=== PATIENT | male | born 1950 | race Caucasian/White ===

== ENCOUNTER → 2022-01-28 08:48 | Outpatient (CLI) | payer MEDICARE, SELFPAY ==
--- NOTE | 2022-01-28 | DI.MRI.S_ITS ---
PROCEDURE: MR PELIS WO/W CON INDICATIONS: Elevated prostate specific antigen [PSA] TECHNIQUE: Coronal HASTE, axial T1 FSE with fat saturation, 3-plane nonbreath-hold T2 FSE. After the administration of contrast, dynamic axial, delayed axial and coronal VIBE or 2-D FLASH with fat saturation through the pelvis. Optional diffusion weighted imaging and ADC may be performed. COMPARISON: None. FINDINGS: Image quality: Diagnostic. Prostate: Gland size is 6.6 x 5.5 x 7.8 cm; ellipsoid gland volume is 147 mL. There is heterogeneous enlargement of the transition zone with numerous in capsulated nodules. Lesion size(s): Lesion 1: 2.4 x 2.0 x 1.9 cm. Lesion 2: 0.9 x 0.9 x 0.8 cm. Lesion location(s) (sector): Lesion 1: Right posterior lateral transition zone and right posterior lateral medial peripheral zone in the mid prostate to the apex. Lesion 2: Left lateral posterior peripheral zone at the level of the mid gland. Lesion description: Lesion 1: There is an oval moderately T2 hypointense lesion with indistinct margins. No definite extraprostatic extension. Lesion 2: There is an oval circumscribed moderately T2 hypointense lesion. No evidence of extraprostatic extension. T2 weighted imaging (T2WI) morphology score: Lesion 1: 5 Lesion 2: 4 Diffusion weighted imaging (DWI) morphology score: Lesion 1: 5 Lesion 2: 4 Dynamic contrast enhancement (DCE): Lesion 1: Present. Lesion 2: Present. Lesion PI-RADS score: Lesion 1: PI-RADS 5 Lesion 2: PI-RADS 4 Genitourinary system: There is mild bladder wall thickening and trabeculation consistent with sequelae of chronic bladder outlet obstruction. Distal ureters are non distended. Bowel and peritoneum: No pathologic free pelvic fluid. Inferior colon and small bowel loops are normal in caliber. Nodes and vessels: No pelvic or inguinal adenopathy by size criteria. Iliac vessels are normal in caliber. Soft tissues: No inguinal hernias. Bones: Marrow demonstrates normal overall signal. There is a small indistinct mildly T2 hyperintense and mildly enhancing lesion within the left sacral ala measuring up to approximately 0.8 cm. This is incompletely evaluated on the current study. IMPRESSION: 1. PI-RADS 5 lesion demonstrated within the right posterior transition zone and peripheral zone at very high suspicion for clinically significant prostate cancer. No definite evidence of extraprostatic extension. 2. Smaller PI-RADS 4 lesion within the left peripheral zone also at high suspicion for clinically significant prostate cancer. 3. No evidence of lymphadenopathy in the pelvis by size criteria. 4. Small indistinct mildly enhancing lesion in the left sacrum. The findings are nonspecific but are incompletely evaluated on the current study. Recommend correlation with bone scan. 5. Mild bladder wall thickening and trabeculation compatible with sequelae of chronic bladder outlet obstruction. Dictated by: Juan Mackey M.D. on 01/28/2022 at 14:56 Approved by: Juan Mackey M.D. on 01/28/2022 at 15:11
== END ==
PROVIDERS: Referring Provider Urology; Visit Provider Urology
DX: R97.20 Elevated prostate specific antigen [PSA] (principal); N42.9 Disorder of prostate, unspecified; M89.9 Disorder of bone, unspecified; N32.89 Other specified disorders of bladder
CPT/HCPCS: 72197; A9579

== ENCOUNTER → 2022-07-22 11:25 | Outpatient (CLI) | payer MEDICARE, SELFPAY ==
[2022-07-22 20:39] LABS: BUN Creatinine Ratio 17.3 (6-22); Blood Urea Nitrogen 18 mg/dL (9-20); Calcium 9.1 mg/dL (8.4-10.2); Carbon Dioxide 28 mmol/L (22-32); Chloride 103 mmol/L (98-107); Estimated Glomerular Filt Rate > 60 mL/min (>60); Glucose 92 mg/dL (80-110); HEMOLYSIS < 15 (0-50); Potassium 3.9 mmol/L (3.4-5.1); Sodium 140 mmol/L (137-145)
[2022-07-22 21:11] LABS: Prostate Specific Antigen 20.6 ng/mL (0.10-4.00)
== END ==
PROVIDERS: PCP Physician Assistant; Visit Provider Specialist
DX: Z01.812 Encounter for preprocedural laboratory examination (principal); R97.20 Elevated prostate specific antigen [PSA]
CPT/HCPCS: 80048; 84153

== ENCOUNTER → 2022-08-19 09:10 | Outpatient (CLI) | payer MEDICARE, SELFPAY ==
--- NOTE | 2022-08-19 09:11 | DI.CT.S_ITS ---
PROCEDURE: CT CHEST ABD PEL W CON INDICATIONS: Prostate CA TECHNIQUE: After the administration of oral and intravenous contrast, axial sections acquired from the supraclavicular neck to the pubic symphysis. Coronal and sagittal reformats were performed. For radiation dose reduction, the following was used: automated exposure control, adjustment of mA and/or kV according to patient size. COMPARISON: None. FINDINGS: Image quality: Excellent. CHEST: Lower Neck: No enlarged lymph nodes. Thyroid: Within normal limits. Axillae: No enlarged lymph nodes. Chest Wall: Unremarkable. Lungs and Airways: No consolidation or suspicious nodules. Bibasilar atelectasis. Mild emphysematous change. Airways are clear. Pleura: No pneumothorax or pleural effusions. Heart: Heart size is normal. Mild coronary artery calcifications. No pericardial effusion. Thoracic Vessels: The aorta and pulmonary arteries demonstrate normal size. Mediastinum and [place]: No enlarged lymph nodes. Esophagus: No wall thickening. No hiatal hernia. ABDOMEN: Liver: No focal lesion. Gallbladder: Unremarkable. Biliary ducts: Unremarkable. Pancreas: Unremarkable. Spleen: Unremarkable. Adrenal Glands: Unremarkable. Kidneys and Ureters: No hydronephrosis. Simple left renal cysts. Largest measuring 6.7 cm. Stomach and Bowel: Stomach, small bowel loops, and colon are unremarkable. Diverticulosis. Normal appendix. Peritoneum: No abnormal intraperitoneal fluid. No free air. Ventral Wall: Tiny umbilical hernia. Abdominal Nodes: No retroperitoneal or mesenteric adenopathy by size criteria. Vessels: Aorta and inferior vena cava are normal in size. Moderate plaque. PELVIS: Pelvic Organs: Prostatomegaly with median lobe hypertrophy. Bladder: No stones. Pelvic Nodes: No enlarged lymph nodes. Miscellaneous: No inguinal hernias are seen. Bones: Sclerotic focus at the right femoral neck. Sclerotic foci at the left femoral head and intertrochanteric region. Minimal scoliosis. IMPRESSION: 1. Small osseous sclerotic foci in the pelvis are indeterminate for metastatic disease. -Please see separately dictated nuclear medicine bone scan which is pending. 2. No adenopathy. Prostatomegaly. 3. Lungs are clear. Dictated by: Ramos Gonzalez M.D. on 08/19/2022 at 11:30 Approved by: Ramos Gonzalez M.D. on 08/19/2022 at 11:39
--- NOTE | 2022-08-19 09:11 | DI.NM.S_ITS ---
PROCEDURE: NM BONE SCAN WHOLE BODY RADIOPHARMACEUTICAL: 20.5 mCi Tc-99m MDP IV. INDICATIONS: Prostate CA TECHNIQUE: Delayed whole-body scintigrams were obtained approximately 3-4 hours after intravenous injection of radiotracer. Anterior and posterior views were acquired from vertex to feet. Additional left and right oblique views of the pelvis were obtained. COMPARISON: [facility], CT, CT CHEST ABD PEL W CON, 08/19/2022, 10:12. [facility], MR, MR PELVIS WO/W CON, 01/28/2022, 9:07. FINDINGS: No areas of relative intense radiotracer uptake identified that would be concerning for metastatic disease. No areas of photopenia identified in the osseous skeleton. Relatively subtle radiotracer uptake identified in the shoulders bilaterally, the sternoclavicular joints, the cervical spine, the knees, the ankles in the mid feet compatible with osteoarthritis. No abnormal soft tissue uptake. Activity in the kidneys is normal and symmetric. IMPRESSION: No scintigraphic evidence of osseous metastatic disease. Dictated by: Betty Ramos MD, PhD on 08/19/2022 at 14:51 Approved by: Betty Ramos MD, PhD on 08/19/2022 at 14:54
== END ==
PROVIDERS: PCP Physician Assistant; Referring Provider Specialist; Visit Provider Specialist
DX: C61 Malignant neoplasm of prostate (principal); I25.10 Atherosclerotic heart disease of native coronary artery without angina pectoris; N28.1 Cyst of kidney, acquired
CPT/HCPCS: 71260; 74177; 78306; A9503

== ENCOUNTER 2022-12-01 06:20 | Inpatient (IN) | payer MEDICARE, SELFPAY ==
[2022-11-27 10:20] VITALS: BMI 28.3
[2022-12-01] VITALS (12 sets, daily range): BP systolic 98–149; BP diastolic 63–88; PULSE 70–99; RESP 14–18; TEMP 35.8–36.7; O2SAT 92–99; BMI 28.3
--- NOTE | 2022-12-01 | PATH_ITS ---
[facility] Accession Number: [id number] No. of containers..03 Tissue . 01 Material submitted: . PART A: lymph node - RIGHT PELVIC LYMPH NODES PART B: lymph node - LEFT PELVIC LYMPH NODES PART C: prostate - PROSTATE . 01 Diagnosis: A. Right Pelvic Lymph Nodes, Dissection: Seven lymph nodes, negative for malignancy (0/7). . B. Left Pelvic Lymph Nodes, Dissection: Six lymph nodes, negative for malignancy (0/6). . C. Prostate, Radical Prostatectomy: Invasive prostatic adenocarcinoma, predominantly conventional/acinar type with focal ductal features, total Topaz score 9 (primary pattern 4, secondary pattern 5), involving 10% prostatic volume, with established extraprostatic extension, extensive perineural invasion, and focally positive margin at the right apex. See case summary and comment below. . CASE SUMMARY: Procedure: Radical Prostatectomy. Prostate Weight: 126 grams. TUMOR Histologic Type: Predominantly acinar adenocarcinoma with focal ductal features. Histologic Grade: Grade Group: 5 (4+5=9). Intraductal Carcinoma Of The Prostate: Present focally. Cribriform Gland: Present extensively. Tumor Quantitation: 10% of prostate volume is involved by tumor. Greatest Dimension Of Dominant Nodule: 26 x 22 mm (right mid and right posterior, slice 2). Extraprostatic Extension: Present, nonfocal (established). Urinary Bladder Neck Invasion: Not identified. Seminal Vesicle Invasion: Not identified. Lymphovascular Invasion: Not identified. Perineural Invasion: Extensive. Margins: Invasive carcinoma is present at margin focally. Margins Involved By Invasive Carcinoma: Focally at right apex margin (block C5, over a length of no more than 1 mm); see comment. Regional Lymph Nodes (see parts A and B): 13 lymph nodes negative for malignancy (0/13). Pathologic Stage: pT3a, pN0. . COMMENT: In block C5 (slice 1/apex), apparently cauterized tumor (magdalena 4) with overlying ink is seen within an area of extraprostatic extension. . In addition, in block C35 (slice 5), also in an area of extraprostatic extension, in the right mid prostate, a focus (less than 0.5 mm) is suspicious for involvement of margin, whereas tumor (magdalena 3) with overlying ink is seen. . Extraprostatic extension is seen in the right apex (slice 1), left posterior (slice 2), right mid/posterior (slice 4), and in the right mid (slice 5). . The invasive carcinoma involves predominantly the apex and the right mid and posterior quadrants, but is also seen involving the left posterior and focally the left anterior quadrant. JETHRO 12/11/2022 0338 Local . 01 Electronically signed: . Felecia Ureña MD, Pathologist NPI- [id number] . 01 Gross description: . A. Received in formalin labeled with the patient's name, and right pelvic nodes, and consists of a fragment of yellow lobulated adipose tissue measuring 6.1 x 2.8 x 1.0 cm. Palpation reveals seven page lymph node candidates ranging from 0.4 to 3.6 cm in greatest dimension. The lymph node candidates are submitted as follows: A1: Three intact lymph node candidates. A2: Three intact lymph node candidates. A3-A6: Largest serially sectioned lymph node candidate submitted sequentially. B. Received in formalin labeled with the patient's name, and left pelvic lymph nodes, and consists of a fragment of yellow lobulated adipose tissue measuring 6.2 x 1.7 x 1.0 cm. Palpation reveals five page lymph node candidates ranging from 0.4 to 4.1 cm in greatest dimension. The lymph nodes are submitted entirely as follows: B1: Two intact lymph node candidates. B2: Two intact lymph node candidates. B3-B7: Largest lymph node candidate serially sectioned and submitted sequentially. C. Received in formalin labeled with the patient's name, and prostate, and consists of a radical prostatectomy with right and left seminal vesicles and vasa deferentia weighing 126 grams and measuring 7.8 cm SI, 6.2 cm ML, and 5.7 cm AP. The right seminal vesicle and vas deferens measure 2.9 x 1.7 x 0.5 cm. The left seminal vesicle and vas deferens measure 3.7 x 1.8 x 0.9 cm. The base is significant for a large protruding nodule at the edge of the urethra measuring 3.0 x 2.4 x 1.5 cm. The right anterior is inked blue, the left anterior is inked green, the posterior is intact black, and the nodule at the base is inked orange. The prostate is serially sectioned from apex to base into seven slices to reveal an ill-defined pale page firm lesion at the right posterior aspect of slices 1-3 measuring 2.9 x 2.8 x 1.8 cm. The lesion grossly approaches the right anterior, posterior, and right apex margins with no gross invasion of the seminal vesicles or vasa deferentia. The remaining prostate is page, nodular, and unremarkable. Spinning Bath Person sections are submitted as follows: C1-C2: Left apex margin. C3-C6: Right apex margin. C7-C10: Left base margin with nodule. C11-C14: Right base margin. C15: Spinning Bath Person right base nodule. C16: Left seminal vesicle and vas deferens. C17: Right seminal vesicle and vas deferens. C18-C19: Slice 2; left; anterior to posterior. C20-C22: Slice 2; right; anterior to posterior. C23-C25: Slice 3; left half; anterior to posterior. C26-C28: Slice 3; right half; anterior to posterior. C29: Rep slice 4; right posterolateral. C30-C32: Slice 5; left half; anterior to posterior. C33-C35: Slice 5; right half; anterior to posterior. C36: Rep slice 6; right posterolateral section. Case discussed with Dr. Hunt and Dr. Das. ([id number]) /MRV 12/02/2022 [facility] Local . 01 Microscopic: . A cocktail of basal markers (high molecular weight cytokeratin and p63) is performed on blocks C4, C5 and C21 in order to evaluate the invasive carcinoma and for the presence of intraductal carcinoma of the prostate. Focal presence of basal markers supports focal intraductal carcinoma of the prostate. . CD34 and D2-40 immunostains are performed on blocks C4 and C5 in order to evaluate histologic features of possible lymphovascular space invasion. CD34 and D2-40 are negative around areas of interest, in support of no histologic evidence of lymphovascular space invasion. . * This test was developed and its performance characteristics [facility]. It has not been cleared or approved by the U.S. Food and Drug Administration. The FDA has determined that such clearance or approval is not necessary. This test is used for clinical purposes. It should not be regarded as investigational or for research. . 01 Pathologist provided ICD-10: C61 . 01 CPT . 656326, 682977, 162992, L34996, [id number], [id number] Specimen Comment: A courtesy copy of this report has been sent to [phone] Performed at: 01 [facility] [address] [facility], [place], [place] [id number] MD Juan Hunt MD Phone: [phone]
[2022-12-01 07:14] LABS: Hematocrit 42.8 % (41-53); Hemoglobin 14.2 g/dL (13.5-17.5)
[2022-12-01] MEDS: LACTATED RINGERS 1,000 ML 21 ML IV ×3 (07:14→10:39)
--- NOTE | 2022-12-01 07:43 | PM.PREOP ---
Pre-operative Note COVID-19 Criteria for continued procedure: Expected advancement of disease process, Deterioration of the patient's condition or overall health, Delay expected to result in less-positive ultimate med/surg outcome and Non-surgical alternatives not available or appropriate per current SOC Interval Note History & Physical reviewed/Exam performed by Physician: Yes Changes to H&P: No
[2022-12-01] MEDS: CEFAZOLIN 2 GM/100 ML PREMIX 100 ML IV (08:03)
[2022-12-01] MEDS: ACETAMINOPHEN IV 1,000 MG/100 ML VIAL 400 MG IV (08:15)
--- NOTE | 2022-12-01 08:51 | SUR.OPER ---
Supine on padded OR bed, head on pillow, arms secured on padded arm boards at <90 degrees abduction, legs uncrossed, safety belt at thigh. Bed jackknifed at pt iliac crest. Pillow under pt knees
[2022-12-01 09:02] LABS: COVID19 -Nasal RAPID Negative (Negative)
[2022-12-01] MEDS: TRANEXAMIC ACID 1,000 MG in SODIUM CHLORIDE 0.9% 100 ML 200 MG IV (09:08)
[2022-12-01] MEDS: BUPIVACAINE LIPOSOME 266 MG/20 ML VIAL INJ (10:59)
--- NOTE | 2022-12-01 11:19 | PM.OP.1 ---
Operative Date/Time/Diagnoses Date of procedure: 12/01/22 Time of procedure: 11:19 Pre-op diagnosis: Prostate cancer Post-op diagnosis: same Procedure & Clinicians Procedure: 1. Radical retropubic prostatectomy and bilateral pelvic lymphadenectomy. Same procedure as scheduled: Yes Indications: 1. Prostate cancer. Surgeon: Fern Aviles Movement Assembly Final Inspector: Donya Saeed Click Yes if Unassisted: No Anesthesia Type: General, Spinal (Duramorph) and Local (1.33% Exparel) Operative Notes Findings: 1. Normal midline lower abdominal tissue planes. 2. Markedly enlarged and globus prostate. 3. Visually and palpably unremarkable bilateral pelvic lymph nodes. 4. The periprostatic and seminal vesicle planes in the vicinity the prostate base and seminal vesicle fossa were on usually fibrotic. No visual or palpable obvious evidence of disease extension. Closure Type: primary Specimen(s): other (1. Prostate with attached seminal vesicles. 2. Right and left pelvic lymph nodes submitted separately. ) Applied: catheter (Eighteen Mongolian silicone [address] Yanez catheter.) Estimated Blood Loss (mL): 400 Blood products transfused: none Procedure in detail: Patient was administered Duramorph spinal anesthetic and then repositioned supine and provided general anesthesia. The abdomen, genitalia, and groin were then prepped and draped in sterile fashion. A 22 Mongolian Yanez catheter was inserted in the lower urinary tract in the balloon was inflated 20 cc. Catheter was placed to gravity drainage. A midline incision was made above the pubic symphysis through the layers of the midline lower abdominal wall using sharp, cautery, and blunt technique. The extraperitoneal, pelvic retroperitoneum was then entered. The anterior lateral sidewalls were then exposed using blunt technique. Bilateral pelvic lymph node dissection was performed using same steps and maneuvers as follows: The adventitia overlying the external iliac vein was divided along its length. The tash packet along the pelvic sidewall was then carefully dissected using blunt technique and and cautery technique for lymphostasis and hemostasis. In both cases the obturator nerve and vessels were observed and preserved. At the proximal extent of the dissection the tash packet was excised using cautery and sharp technique. The same maneuvers and technique reduce the distal extent. In both cases the specimens were handed off the field, labeled as to the site of their procurement and sent to pathology for routine gross and microscopic examination. Next the endopelvic fascia was incised on either side of the prostate careful blunt dissection was used to mobilize the levator musculature attachments. The prostatic fascia was then incised at the lateral aspect on the right side and carefully mobilized posteriorly except at the more apical extent which was not possible due to the globus nature of the prostate and rather high pubic arch. The same difficulties were encountered to divide and mobilize the prostatic fascia on the left. Next the puboprostatic ligaments were isolated and divided on each side using the LigaSure device. An O Monocryl was then placed at the apex of the pubic arch an overhand suture placements were conducted as needed while alternate with meticulous dissection and division of the dorsal venous complex with the thermal ligating device. Hemostasis was excellent. The urethra was I identified and isolated by gently elevating off the rectal wall. It was then divided just distal to the prostatic apex. The Yanez catheter was then mobilized so that it could be utilized to manipulate the prostate through dissection with anterior and caudal elevation. The rectal urethralis musculature was isolated and divided freeing the apex. Next, posterior lateral vascular pedicles were painstakingly isolated and divided with application of medium heme lock clips on the patient's side. Prostate was elevated reflected anteriorly as caudally to the level of the seminal vesicles. Did not base fascia was elevated and divided transversely, with the fibrotic findings as described above. Ampulla of the vas were isolated clipped proximally distally and divided. Accessed to the seminal vesicles was limited from the posterior approach. Therefore, the anterior bladder neck-prostate base junction was identified and careful blunt and cautery dissection was then used to open the bladder neck and extended dissection using the same techniques laterally on both sides. A large median lobe was encountered and engaged with an Allis clamp. The mucosa was then carefully identified, elevated and divided along the base of the intra prostatic median lobe. The trigone and ureteral orifices were identified in both cases and were avoided though they were positioned very close to the plane of elevation dissection of the median lobe. Posterior bladder neck was then divided using combination of sharp cautery and blunt technique. Now the seminal vesicles could be readily seen and were carefully divided from within the fossa using medium heme lock clips and sharp division. The prostate and attached seminal vesicles were then handed off the field in submitted to pathology for routine gross and microscopic examination. The bladder neck mucosa was then effaced using a Lembert technique with 4-0 Monocryl. A fishmouth repair of the bladder neck was performed using 2-0 Monocryl suture. Next, the Shivam sound was passed through the urethral meatus and the tip was positioned at the transected urethra just above the level of the pelvic floor. The flanges were engaged exposing the urethral margins. 2-0 Monocryl suture were then placed through the urethra at the 2, 4, 6, 8, and 10 positions the same sutures were then brought through their corresponding positions at the neobladder neck under direct visualization. An 18 Mongolian silicone Yanez catheter was then passed lower urinary track under direct visualization and the tip was advanced into the bladder lumen. The balloon was then inflated to 15 cc. Gentle traction was then applied to the catheter and the sutures were tied down sequentially under direct visualization. The Yanez catheter was then irrigated was clear and without clot immediately. It was then placed to gravity drainage. A 15 Mongolian fenestrated Kayden drain was then positioned in the space of Retzius and brought out through a separate stab incision to the right of midline incision. It was secured to the skin using 2-0 silk and Julien sandal technique in usual fashion. The skin and midline abdominal fascia were then infiltrated with diluted Exparel anesthetic. The fascia was then closed using running 0 PDS, starting at each the superior, and the inferior apex and then in running fashion meeting near the midline or the incision and tying 1 another together at that point. Valeriy's fascia was then reapproximated using 3-0 Vicryl. The skin was reapproximated using a running subcuticular technique of 4-0 Monocryl. The skin surface of the prepped area was then cleaned and dried. Telfa gauze were then trimmed and tailored appropriately from the drain site and the incision line. Both were then dressed with a transparent Op site. The patient was then awakened, transferred to [facility], and then transferred to recovery in stable condition. Complications: none Post-operative Condition: stable Disposition: PACU Plan for aftercare: Admit to acute care.
--- NOTE | 2022-12-01 12:37 | SUR.PHASEI ---
1235: Pt A&Ox4, denies any pain, VSS, spinal progressing to perineum. Dressing scant amt of drainage, intact. MASHA to bulb suction approx 10 mL collected. Urine clear lightly pink. Report given to receiving RN with time allowed for questions. PT transferred to room 206 with all personal belongings. Called updated daughter.
--- NOTE | 2022-12-01 13:00 | P.HP_ITS ---
History of Present Illness History of Present Illness Date Patient Seen: 12/01/22 Time Patient Seen: 13:00 Chief complaint: Radical Prostatectomy 12/01 Narrative: HPI Chief Complaint Chief Complaint: Prostate cancer HPI Details: Demario is a 71-year-old gentleman returning today for review PYLARIFY PET-CT scan 10/14/2022.? He denies interval new complaints or concerns.? The patient has a history of elevated PSA for which he underwent a negative TRUS/Bx on 09/24/2021 for PSA of 19.1. Pelvic MRI with contrast 01/28/2022 calculated a prostate volume of 147 cc.? A PI-RADS 5 lesion measuring 2.4 x 2.0 x 1.9 cm was identified at the right posterior lateral prostate in the mid to apical gland.? Additionally, there was a PI-RADS 4 lesion identified measuring 0.9 x 0.9 x 0.8 cm located at the left lateral posterior periphery extending in the mid to apical gland. He then underwent MRI fusion prostate biopsy 05/23/2022.? One of 2 cores were positive from the left midgland.? Group 1 adenocarcinoma was identified but also a finding of intraductal carcinoma was reported. 08/19/2022 whole-body bone scan showed no convincing evidence of osseous metastasis.? CT scan of chest, abdomen, and pelvis performed the same day identified several sclerotic foci within the pelvis, right femoral neck, and left femoral head and inter trochanteric region. PyL PET-CT 10/14/2022 identifies an area of increased metabolic activity within the right mid to inferior prostate gland likely representing known history of p rostate cancer.? No additional hyperintense mass or lymphadenopathy identified.? Incidental findings of a tiny left, nonobstructing right renal calculus and a 1.5 cm mucous retention cyst in the right maxillary sinus medially was identified. Discussed summary of above, interpretation of PET CT scan and options including repeat MRI fusion biopsy, proceed to leuprolide potentiated radiation therapy, and radical prostatectomy.? Explained rationale for the latter given enormous prostate volume and logistical challenges for radiation therapy due to his residence on [place].? He indicates a desire to proceed with definitive radical prostatectomy.? Discussed both open and robotic assisted approaches.? Explain the common side effects, potential complications, perioperative limitations/restrictions, and reasonable expectations of outcomes and recovery following radical prostatectomy.? He had only an additional few clarifying questions and concerns mainly related to postoperative activity restrictions, which were addressed and answered to his satisfaction at the encounter today.? He wishes to proceed as discussed. FOR[facility]LY [facility], [facility] Medical History? BPH w urinary obs/LUTS High blood pressure Prostate cancer Surgical History? H/O vasectomy Family History? Sister CancerFather Hypertension Hearing impairment Social History? marital status:? number of children:? 4 ROS Const All systems reviewed & are unremarkable except as noted in HPI and below Exam Exam Narrative Exam Narrative: He is a well-developed, well nourished male looking younger than his stated age and in no distress.? Head/neck-sclera clear and pupils are round and equal.? No visible evidence of adenopathy or JVD.? Chest-equal and unlabored expansion bilaterally.? Heart-normal sinus rhythm. Assessment & Plan (1) Prostate cancer: ?Status:?Acute ?Code(s): C61 - Malignant neoplasm of prostate Plan 1. Schedule radical retropubic prostatectomy.? 2. Schedule [facility] physical therapy referral for preoperative pelvic floor and core strength assessment and instructions. Reviewed findings, discussed impression, discussed options, and obtained detailed informed consent utilizing Medical illustrations and anatomic models. Review of clinical chart note history, patient data, imaging library, PSA jonathan ry, and pathology report history for encounter-15 minutes Woss-[id number] encounter-35 minutes Encounter documentation, coordination of surgical scheduling, and billing-10 minutes [facility] Medical History BPH w urinary obs/LUTS High blood pressure Prostate cancer Surgical History H/O vasectomy Family History Sister Cancer Father Hypertension Hearing impairment Social History marital status: number of children: 4 household members: spouse Smoking Status: Never smoker alcohol intake: current Meds Home Medications and Allergies Home Medications Medication Instructions Recorded Confirmed Type losartan 100 1 tab PO DAILY 07/16/22 01/14/23 History mg-hydrochlorothiazide 25 mg tablet multivitamin 1 tab PO DAILY 07/16/22 01/14/23 History pravastatin 40 mg tablet 40 mg PO DAILY 07/16/22 01/14/23 History vitamins A,C,[id number]-[id number] 4,296 1 cap PO BID 07/16/22 01/14/23 History mcg-226 mg-90 mg capsule (ICaps AREDS) Allergies Allergy/AdvReac Type Severity Reaction Status Date / Time meloxicam AdvReac Mild Swelling Verified 01/14/23 15:08 Exam Vital Signs (past 8 hours): Oxygen Delivery Method Room Air Oxygen Flow Rate 0 Narrative Exam Narrative: Well-developed well-nourished elderly gentleman in no acute distress. Head/neck-sclera clear pupils equal and round bilaterally. No visible evidence of JVD or adenopathy. Chest-equal and unlabored expansion bilaterally. Heart-normal sinus rhythm. Objective Labs 12/01/22 07:03 Assessment & Plan Assessment & Plan narrative: Assessment: 1. Adenocarcinoma the prostate. Plan: 1. Proceed with radical retropubic prostatectomy and bilateral pelvic lymphadenectomy as scheduled.
[2022-12-01] MEDS: LACTATED RINGERS 1,000 ML 125 ML IV ×2 (13:53→20:10)
[2022-12-01] MEDS: ACETAMINOPHEN 325 MG TABLET 650 MG PO (23:24)
[2022-12-01] MEDS: OXYCODONE IR 5 MG TABLET PO (23:26)
[2022-12-02] VITALS: BP 119/78; PULSE 98; RESP 19; TEMP 36.5; O2SAT 94
[2022-12-02] MEDS: OXYCODONE IR 5 MG TABLET PO ×4 (03:36→23:50)
[2022-12-02 03:46] VITALS: BP 101/59; PULSE 82; RESP 15; TEMP 36.5; O2SAT 94
[2022-12-02] MEDS: LACTATED RINGERS 1,000 ML 125 ML IV (04:17)
--- NOTE | 2022-12-02 07:37 | PM.PN.1 ---
Subjective Subjective Date Patient Seen: 12/02/22 Time Patient Seen: 07:10 Interval history: Demario is a 71-year-old male admitted 12/01/2022, for presumed localized carcinoma the prostate. He underwent radical retropubic prostatectomy on the morning of 12/01/2022 under Duramorph spinal and general anesthesia. Exam Vital Signs (past 8 hours): - 12/02/22 00:00 12/02/22 03:46 Temperature 97.7 F 97.7 F Pulse Rate 98 H 82 Respiratory Rate 19 15 Blood Pressure 119/78 101/59 L Pulse Oximetry 94 94 Oxygen Flow Rate 0 0 Oxygen Delivery Method Room Air Oxygen Flow Rate 0 Narrative Exam Narrative: Patient is sitting upright in bed and in no distress. Chest-equal and unlabored expansion bilaterally. Heart-normal sinus rhythm. MASHA drain-small to moderate bloody output. Approximately 10 cc in bulb. Suction reset. Yanez-light pink to rodrigo output without clot. Objective Labs 12/01/22 07:03 Labs: Laboratory Results - last 24 hr 12/01/22 12/01/22 07:23 08:33 SARS-CoV-2 (PCR) Negative Blood Type A Positive Antibody Screen Negative PFSH Medical History BPH w urinary obs/LUTS High blood pressure Prostate cancer Surgical History H/O vasectomy Family History Sister Cancer Father Hypertension Hearing impairment Social History marital status: number of children: 4 household members: spouse Smoking Status: Never smoker alcohol intake: current Assessment & Plan Assessment & Plan narrative: Assessment: 1. Stable postoperative day 1 status post radical retropubic prostatectomy and bilateral pelvic lymphadenectomy. 2. Pathology pending. Plan: 1. Increase diet and activity today. 2. Follow-up on pathology report when final as outpatient. Time Spent With Patient Critical Care time: I spent a total of [] minutes of critical care time on this patient's care today; this time is exclusive of procedural time.
[2022-12-02] MEDS: ACETAMINOPHEN 325 MG TABLET 650 MG PO ×3 (07:59→23:51)
[2022-12-02 08:00] VITALS: BP 116/64; PULSE 67; RESP 17; TEMP 36.2; O2SAT 96
[2022-12-02] MEDS: hydroCHLOROthiazide 25 MG TABLET PO (09:07)
[2022-12-02] MEDS: BISACODYL 10 MG SUPP PR (09:09)
[2022-12-02] MEDS: ENOXAPARIN 40 MG/0.4 ML SYRINGE SUBCUT (09:09)
[2022-12-02] MEDS: PRAVASTATIN 20 MG TABLET 40 MG PO (09:11)
[2022-12-02 11:32] VITALS: BP 114/72; PULSE 63; RESP 17; TEMP 36.3; O2SAT 95
--- NOTE | 2022-12-02 14:21 | CM.DANOTE ---
Initial DCP Assessment Note Pt is a 71 yo male, resident of [place] now POD#[address] Aviles PCP: Hilary Sellers Payer: Geovanny MUÑOZ Reviewed chart, pt discussed in multidisciplinary rounds this morning. Patient indp and active at baseline, no barriers identified by team to discharge home w/supportive spouse when medically cleared to do so No barriers identified at this time to patient's safe discharge home w/family to assist; close outpatient f/u recommended. CURTIS Mccarthy Discharge Planning/Care Management CM Discharge Assessment Start: 12/02/22 14:14 Freq: Status: Active Protocol: Document 12/02/22 14:14 YOBANY (Rec: 12/02/22 14:21 YOBANY [id number]) Discharge Planning Assessment Assigned Manager Regulatory CURTIS Gibbs DPOA/Assigned Designee Name Elyse Sudheer Contact Information [phone] or [phone] Advance Directives? No History Provided By Patient,Medical Record Prior Living Arrangements House Household Members spouse Independent with ADL's Yes Is patient alert and oriented? Yes Barriers to Discharge No Comment Home w/spouse Discharge Plan Home Transportation Arrangement Spouse Referrals Initiated None needed
[2022-12-02 16:00] VITALS: BP 124/72; PULSE 68; RESP 17; TEMP 37; O2SAT 96
[2022-12-02 20:00] VITALS: BP 131/81; PULSE 81; RESP 19; TEMP 36.3; O2SAT 95
[2022-12-03] VITALS: BP 114/70; PULSE 74; RESP 15; TEMP 36.6; O2SAT 95
[2022-12-03 04:00] VITALS: BP 131/84; PULSE 75; RESP 17; TEMP 36.6; O2SAT 92
[2022-12-03] MEDS: OXYCODONE IR 5 MG TABLET PO ×2 (05:52→12:16)
[2022-12-03] MEDS: ACETAMINOPHEN 325 MG TABLET 650 MG PO (05:52)
--- NOTE | 2022-12-03 07:40 | PM.DS.1 ---
History of Present Illness History of Present Illness Date Patient Seen: 12/03/22 Time Patient Seen: 07:15 Chief complaint: Radical Prostatectomy 12/01 Narrative: The patient was admitted on 12/01/2022 and underwent uncomplicated radical retropubic prostatectomy and bilateral pelvic lymphadenectomy under general and Duramorph spinal anesthesia for presumed localized carcinoma the prostate. Preoperative metastatic survey revealed no evidence of local, regional, extension or distant metastasis. Discharge Providers Provider Date of admission: 12/01/22 06:20 Discharge Date: 12/03/22 Primary care physician: SAM Iqbal Discharge provider: Fern Aviles MD Summary Hospital Course Discharge Diagnosis: 1. Prostate cancer Hospital Course: The patient was admitted on 12/01/2022 and underwent uncomplicated radical retropubic prostatectomy and bilateral pelvic lymphadenectomy under general and Duramorph spinal anesthesia. The patient's postop course was essentially unremarkable in that he tolerated a general diet the evening immediately postoperative, was able to ambulate and transfer without assistance morning of the 1st postoperative day and had return of bowel function the afternoon of the 1st postoperative day. The morning of 12/03/2022 the patient was stable for discharge. Pathology was pending at discharge. Exam Vital Signs (past 8 hours): - 12/03/22 00:00 12/03/22 04:00 Temperature 97.8 F 97.8 F Pulse Rate 74 75 Respiratory Rate 15 17 Blood Pressure 114/70 131/84 Pulse Oximetry 95 92 Oxygen Flow Rate 0 0 Oxygen Delivery Method Room Air Oxygen Flow Rate 0 Narrative Exam Narrative: His lying comfortably in bed and in no distress, awake and alert. Chest-equal and unlabored expansion bilaterally. Sinus rhythm. Abdomen-dressings and MASHA drain intact. Drain has proximally 20 cc of serosanguineous output. The drain is stripped without return of significant clot or additional fluid. Genitalia-intact to a Yanez catheter draining light rodrigo/pink outflow. No significant clots. Extremity-no edema pallor or tenderness. Objective Labs 12/01/22 07:03 [facility] Medical History BPH w urinary obs/LUTS High blood pressure Prostate cancer Surgical History H/O vasectomy Family History Sister Cancer Father Hypertension Hearing impairment Social History marital status: number of children: 4 household members: spouse Smoking Status: Never smoker alcohol intake: current Discharge Assessment & Plan Assessment and Plan Assessment: 1. Stable postop day 2 status post radical retropubic prostatectomy. 2. Pathology pending. 3. Indwelling Yanez catheter. Plan of Treatment: 1. Discharge home today. 2. Pathology will be discussed in outpatient setting when final. 3. Routine catheter care use instruction before discharge. Outpatient supervised voiding trial be arranged in the Urology Clinic. 4. Routine post prostatectomy activity, driving, hygiene, and site care instructions provided at the bedside this morning. 5. Explanation of common side effects, precautions, and intake/injection instructions for discharge medications provided at bedside this morning. Discharge Plan Discharge Plan Patient Disposition: Home Provider Discharge Comment: Please contact the urology clinic to schedule postop follow-up appointments. Discharge orders & Medications Prescriptions: New oxycodone 5 mg Tablet 5 mg PO Q4H PRN (Reason: Pain, Moderate (4-6)) Qty: 20 0RF enoxaparin [Lovenox] 40 mg/0.4 mL Syringe 40 mg SUBCUT DAILY Qty: 12 0RF ciprofloxacin HCl 250 mg tablet 250 mg PO Q12H Qty: 6 0RF Rx Instructions: Begin in the morning, the day before scheduled catheter removal as directed. Continued losartan-hydrochlorothiazide 100-25 mg tablet 1 tab PO DAILY pravastatin 40 mg tablet 40 mg PO DAILY ICaps AREDS [id number],320-283-200 [id number] capsule 1 cap PO BID multivitamin Tablet 1 tab PO DAILY Discontinued doxazosin 4 mg tablet 4 mg PO DAILY Follow up/Referrals: Hilary Sellers ARNP [Primary Care Provider] - Diet/Activity/Treatments Diet: Diet as Tolerated Activity: To not lift objects heavier than 15 lb x 4 weeks. No driving x2 weeks. Catheter: 2-way Yanez Catheter comment: Large bag-in-home use and at night. Leg bag-use when out of home. Skin/Wound/Dressing Care Skin care: After showering, pat dry incisional area and leave open to air. Report to your healthcare provider any signs of infection, such as:: chills, fever, night sweats, increased pain, unusual drainage and unusual redness Visit Report/Discharge Packet Instructions: DI for Radical Prostatectomy, DI for Prescription Opioid Use Discharge Data Primary Care Provider: Hilary Sellers
[2022-12-03 08:00] VITALS: BP 122/78; PULSE 71; RESP 17; TEMP 37; O2SAT 94
[2022-12-03] MEDS: hydroCHLOROthiazide 25 MG TABLET PO (09:19)
[2022-12-03] MEDS: LOSARTAN 50 MG TABLET 100 MG PO (09:19)
[2022-12-03] MEDS: PRAVASTATIN 20 MG TABLET 40 MG PO (09:19)
[2022-12-03] MEDS: ENOXAPARIN 40 MG/0.4 ML SYRINGE SUBCUT (09:19)
[2022-12-03] MEDS: BISACODYL 10 MG SUPP PR (09:19)
--- NOTE | 2022-12-03 09:53 | PC.NURSE ---
Addendum entered by Shonda Torres R.N. 12/03/22 13:14: patient will remove pelvic dressing at home after shower. instructed patient to leave it open to air. p Original Note: removed MASHA drain as instructed at 0918, lovanox instruction given, patient demonstrated injecting himself lovanox shot.
[2022-12-03] MEDS: SODIUM CHLORIDE 0.9% FLUSH 10 ML IV (10:59)
[2022-12-03 11:47] VITALS: BP 141/88; PULSE 80; RESP 17; O2SAT 94
== END 2022-12-03 12:40 | disposition home or self-care (01) | DRG 708 ==
PROVIDERS: Admitting Provider Specialist; Family Provider Nurse Practitioner Family; PCP Nurse Practitioner Family; Referring Provider Specialist; Visit Provider Specialist
PROC: 0VT00ZZ Resection of Prostate, Open Approach (ICD-10-PCS; principal; 2022-12-01 07:45)
DX: C61 Malignant neoplasm of prostate (principal); R03.0 Elevated blood-pressure reading, without diagnosis of hypertension; Z20.822 Contact with and (suspected) exposure to COVID-19
CPT/HCPCS: 36415; 55845; 85014; 85018; 86850; 86900; 86901; 87086; 87635; C9803; C9290; J0131; J0330; J0690; J1100; J1650; J2274; J2405; J2704; J3010

== ENCOUNTER 2023-02-11 13:45 | Outpatient (RCR) | payer MEDICARE, SELFPAY ==
[2022-12-03 08:23] VITALS: BMI 28.3
--- NOTE | 2022-12-10 21:10 | PT.OTN ---
Current Diagnoses Other obstructive and reflux uropathy (12/10/22) Benign prostatic hyperplasia with lower urinary tract symptoms (12/10/22) Physical Therapy Treatment Note PT-OP-A Visit Information Start: 11/24/22 12:59 Freq: Status: Active Protocol: Document 12/10/22 13:47 AMB (Rec: 12/10/22 14:30 AMB [id number]) Out-Patient Physical Therapy Visit Information Visit Information Visit Type Initial Evaluation Visit Start Time 13:45 Visit Stop Time 14:30 Total Visit Minutes 45 Visit Number 1 PT-OP-B Current Condition Start: 11/24/22 12:59 Freq: Status: Active Protocol: Document 12/10/22 13:47 AMB (Rec: 12/10/22 14:30 AMB [id number]) Current Condition History of Current Condition Onset Date 12/03 Current Complaints s/p radical prostatectomy History of Current Condition Urgency before surgery, had surgery a week ago, still catheterized. Radical prostatectomy. Denied leaking before surgery. PT-OP-T Assessment and Plan Start: 11/24/22 12:59 Freq: Status: Active Protocol: Document 12/10/22 13:45 AMB (Rec: 12/14/22 21:10 AMB [id number]) Physical Therapy Assessment Rehab Potential Rehabilitation Potential Good Evaluation Complexity Number of Personal Factors/Comorbidities 0 Number of Body Systems Impaired 1-2 Clinical Presentation at Evaluation Stable Impairments Impairments Functional Activities,Strength Goals Pelvic floor strength Short Term Goal (STG) Demario will contract his pelvic floor muscles appropriate for 10 seconds. STG Duration 4 weeks Jail Goal (LTG) Demario will contract his pelvic floor muscles while moving from sit to stand without breath holding. LTG Duration 8 weeks Continence Short Term Goal (STG) Demario will move from sit to stand without leaking urine. STG Duration 4 weeks Scrub Wheel Operator Goal (LTG) Demario will walk one mile without leaking urine. LTG Duration 8 weeks Assessment Summary Assessment Demario attends physical therapy s /p radical prostatectomy still catheterized. Began instruction in pelvic floor strengthening, pt declined internal assessment at this time, can revisit once catheter is removed and we can see how continence is going. Pt lives in [facility] so [place]. Physical Therapy Plan Frequency and Duration Frequency of Treatment 1x/Week Duration of treatment (weeks) 8 Plan of Care Start Date 12/10/22 Plan of Care End Date 02/04/23 Therapeutic Interventions Therapeutic Interventions Home Exercise Program,Manual Therapy,Neuromuscular Re- education,Self-Care/Home Management,Therapeutic Activities,Therapeutic Exercises Modalities Biofeedback,Electric Stimulation Next Visit Focus/Plan Next Note Type Treatment Note Next Visit Plan reassess with biofeedback, progress into standing exercise as tolerated
--- NOTE | 2022-12-10 21:11 | PT.OPPOC ---
Physical, Occupational & Speech Therapy At [facility] Current Diagnoses Other obstructive and reflux uropathy (12/10/22) Benign prostatic hyperplasia with lower urinary tract symptoms (12/10/22) Visit Care Team Role Provider Type SAM Iqbal Family Provider Non-Staff Primary Care Provider Specialty: Medical Address: [address] [place] [address], [id number] Email: Fern Aviles MD Attending Provider Physician Referring Provider Specialty: Urology Address: [address] [place] [address], [id number] Email: Plan Of Care PT-OP-T Assessment and Plan Start: 11/24/22 12:59 Freq: Status: Active Protocol: Document 12/10/22 13:45 AMB (Rec: 12/14/22 21:10 AMB [id number]) Physical Therapy Assessment Rehab Potential Rehabilitation Potential Good Evaluation Complexity Number of Personal Factors/Comorbidities 0 Number of Body Systems Impaired 1-2 Clinical Presentation at Evaluation Stable Impairments Impairments Functional Activities,Strength Goals Pelvic floor strength Short Term Goal (STG) Demario will contract his pelvic floor muscles appropriate for 10 seconds. STG Duration 4 weeks Alf Goal (LTG) Demario will contract his pelvic floor muscles while moving from sit to stand without breath holding. LTG Duration 8 weeks Continence Short Term Goal (STG) Demario will move from sit to stand without leaking urine. STG Duration 4 weeks Alf Goal (LTG) Demario will walk one mile without leaking urine. LTG Duration 8 weeks Assessment Summary Assessment Demario attends physical therapy s /p radical prostatectomy still catheterized. Began instruction in pelvic floor strengthening, pt declined internal assessment at this time, can revisit once catheter is removed and we can see how continence is going. Pt lives in [facility] [place]. Physical Therapy Plan Frequency and Duration Frequency of Treatment 1x/Week Duration of treatment (weeks) 8 Plan of Care Start Date 12/10/22 Plan of Care End Date 02/04/23 Therapeutic Interventions Therapeutic Interventions Home Exercise Program,Manual Therapy,Neuromuscular Re- education,Self-Care/Home Management,Therapeutic Activities,Therapeutic Exercises Modalities Biofeedback,Electric Stimulation Next Visit Focus/Plan Next Note Type Treatment Note Next Visit Plan reassess with biofeedback, progress into standing exercise as tolerated Plan of Care Dates Plan of Care Start Date 12/10/22 Plan of Care End Date 02/04/23 Electronically Signed by: Kendy Parks, PT 12/14/22 2636 If you are in agreement with this Plan of Care, please return a signed and dated copy. I have reviewed this Plan of Care and certify that the skilled therapy services above are required to meet the patient?s needs. Physician Signature Date Printed Name and Credentials Clinical Instructor Signature Printed Name and Credentials
--- NOTE | 2022-12-16 13:00 | PT.OTN ---
Current Diagnoses Other obstructive and reflux uropathy (12/16/22) Benign prostatic hyperplasia with lower urinary tract symptoms (12/16/22) Physical Therapy Treatment Note PT-OP-A Visit Information Start: 11/24/22 12:59 Freq: Status: Active Protocol: Document 12/16/22 12:48 AMB (Rec: 12/16/22 13:00 AMB [id number]) Out-Patient Physical Therapy Visit Information Visit Information Visit Type Treatment Note Visit Start Time 11:15 Visit Stop Time 12:00 Total Visit Minutes 45 Visit Number 2 PT-OP-B Current Condition Start: 11/24/22 12:59 Freq: Status: Active Protocol: Document 12/10/22 13:47 AMB (Rec: 12/10/22 14:30 AMB [id number]) Current Condition History of Current Condition Onset Date 12/03 Current Complaints s/p radical prostatectomy History of Current Condition Urgency before surgery, had surgery a week ago, still catheterized. Radical prostatectomy. Denied leaking before surgery. PT-OP-C Subjective Start: 11/24/22 12:59 Freq: Status: Active Protocol: Document 12/16/22 12:48 AMB (Rec: 12/16/22 13:00 AMB [id number]) OP-PT Subjective Patient Comments Patient Comments Pt had catheter out, not really able to feel leaking. PT-OP-Q Treatments Start: 11/24/22 12:59 Freq: Status: Active Protocol: Document 12/16/22 12:48 AMB (Rec: 12/16/22 13:00 AMB [id number]) Therapeutic Exercises Sitting Exercises roll in roll out Sitting Exercise Name t band #2, difficulty holding with exhale Reps/Minutes 2x10 Standing Exercises sit to stand Reps/Minutes 2 Comments contract pelvic floor first PT-OP-T Assessment and Plan Start: 11/24/22 12:59 Freq: Status: Active Protocol: Document 12/16/22 12:48 AMB (Rec: 12/16/22 13:00 AMB [id number]) Physical Therapy Assessment Goals Pelvic floor strength Short Term Goal (STG) Demario will contract his pelvic floor muscles appropriate for 10 seconds. STG Duration 4 weeks Longterm Goal (LTG) Demario will contract his pelvic floor muscles while moving from sit to stand without breath holding. LTG Duration 8 weeks Continence Short Term Goal (STG) Demario will move from sit to stand without leaking urine. STG Duration 4 weeks Band Aid Machine Operator Goal (LTG) Demario will walk one mile without leaking urine. LTG Duration 8 weeks Assessment Summary Assessment Demario is considering radiation. Instructed in progresing strengthening over the next two weeks until seen next. Physical Therapy Plan Frequency and Duration Frequency of Treatment 1x/Week Duration of treatment (weeks) 8 Plan of Care Start Date 12/10/22 Plan of Care End Date 02/04/23 Therapeutic Interventions Therapeutic Interventions Home Exercise Program,Manual Therapy,Neuromuscular Re- education,Self-Care/Home Management,Therapeutic Activities,Therapeutic Exercises Modalities Biofeedback,Electric Stimulation Next Visit Focus/Plan Next Note Type Treatment Note Next Visit Plan reassess with biofeedback, progress into standing exercise as tolerated
--- NOTE | 2022-12-31 15:38 | PT.OTN ---
Current Diagnoses Other obstructive and reflux uropathy (12/31/22) Benign prostatic hyperplasia with lower urinary tract symptoms (12/31/22) Physical Therapy Treatment Note PT-OP-A Visit Information Start: 11/24/22 12:59 Freq: Status: Active Protocol: Document 12/31/22 13:55 AMB (Rec: 12/31/22 14:38 AMB [id number]) Out-Patient Physical Therapy Visit Information Visit Information Visit Type Treatment Note Visit Start Time 13:45 Visit Stop Time 14:30 Total Visit Minutes 45 Visit Number 3 PT-OP-B Current Condition Start: 11/24/22 12:59 Freq: Status: Active Protocol: Document 12/10/22 13:47 AMB (Rec: 12/10/22 14:30 AMB [id number]) Current Condition History of Current Condition Onset Date 12/03 Current Complaints s/p radical prostatectomy History of Current Condition Urgency before surgery, had surgery a week ago, still catheterized. Radical prostatectomy. Denied leaking before surgery. PT-OP-C Subjective Start: 11/24/22 12:59 Freq: Status: Active Protocol: Document 12/31/22 13:55 AMB (Rec: 12/31/22 14:38 AMB [id number]) OP-PT Subjective Patient Comments Patient Comments Pt feels like thinks are better, continuing to feel leaking naomie with sit to stand. Does leak about 20% of the time at night. PT-OP-Q Treatments Start: 11/24/22 12:59 Freq: Status: Active Protocol: Document 12/31/22 13:55 AMB (Rec: 12/31/22 14:38 AMB [id number]) Therapeutic Exercises Sitting Exercises roll in roll out Sitting Exercise Name t band #2, difficulty holding with exhale Reps/Minutes 2x10 Standing Exercises long holds Standing Exercise Name 10 second hold quick flicks Standing Exercise Name good squat Standing Exercise Name cued breath Reps/Minutes 10 Comments contract pelvic floor- challenging lunge Reps/Minutes 10 Comments challenging, better R than L sit to stand Reps/Minutes 2 Comments contract pelvic floor first PT-OP-T Assessment and Plan Start: 11/24/22 12:59 Freq: Status: Active Protocol: Document 12/31/22 13:55 AMB (Rec: 12/31/22 14:38 AMB [id number]) Physical Therapy Assessment Goals Pelvic floor strength Short Term Goal (STG) Demario will contract his pelvic floor muscles appropriate for 10 seconds. STG Duration 4 weeks Intermediate Goal (LTG) Demario will contract his pelvic floor muscles while moving from sit to stand without breath holding. LTG Duration 8 weeks Continence Short Term Goal (STG) Demario will move from sit to stand without leaking urine. STG Duration 4 weeks Boots And Shoes Supervisor Goal (LTG) Demario will walk one mile without leaking urine. LTG Duration 8 weeks Assessment Summary Assessment Demario is doing well. His incontinence is improving, but is challenged by sit to stand , especially if he has been sitting for awhile. Physical Therapy Plan Frequency and Duration Frequency of Treatment 1x/Week Duration of treatment (weeks) 8 Plan of Care Start Date 12/10/22 Plan of Care End Date 02/04/23 Therapeutic Interventions Therapeutic Interventions Home Exercise Program,Manual Therapy,Neuromuscular Re- education,Self-Care/Home Management,Therapeutic Activities,Therapeutic Exercises Modalities Biofeedback,Electric Stimulation Next Visit Focus/Plan Next Note Type Treatment Note Next Visit Plan reassess with biofeedback, progress into standing exercise as tolerated
--- NOTE | 2023-01-15 13:27 | PT.OTN ---
Current Diagnoses Other obstructive and reflux uropathy (01/14/23) Benign prostatic hyperplasia with lower urinary tract symptoms (01/14/23) Physical Therapy Treatment Note PT-OP-A Visit Information Start: 11/24/22 12:59 Freq: Status: Active Protocol: Document 01/14/23 13:54 AMB (Rec: 01/14/23 14:26 AMB [id number]) Out-Patient Physical Therapy Visit Information Visit Information Visit Type Treatment Note Visit Start Time 13:50 Visit Stop Time 14:30 Total Visit Minutes 40 Visit Number 4 PT-OP-B Current Condition Start: 11/24/22 12:59 Freq: Status: Active Protocol: Document 12/10/22 13:47 AMB (Rec: 12/10/22 14:30 AMB [id number]) Current Condition History of Current Condition Onset Date 12/03 Current Complaints s/p radical prostatectomy History of Current Condition Urgency before surgery, had surgery a week ago, still catheterized. Radical prostatectomy. Denied leaking before surgery. PT-OP-C Subjective Start: 11/24/22 12:59 Freq: Status: Active Protocol: Document 01/14/23 13:54 AMB (Rec: 01/14/23 14:26 AMB [id number]) OP-PT Subjective Patient Comments Patient Comments During the day feels like things are improving. Pt still noticing a lot of nocturia-- feels like has to go every 2 hours or else he leaks. PT-OP-Q Treatments Start: 11/24/22 12:59 Freq: Status: Active Protocol: Document 01/14/23 13:54 AMB (Rec: 01/14/23 14:26 AMB [id number]) Therapeutic Exercises Sitting Exercises roll in roll out Sitting Exercise Name t band #2, difficulty holding with exhale Reps/Minutes 2x10 Standing Exercises lifting 10# Standing Exercise Name crate from waist to chest Reps/Minutes 2x10 long holds Standing Exercise Name 10 second hold quick flicks Standing Exercise Name good squat Standing Exercise Name cued breath Reps/Minutes 10 Comments contract pelvic floor- challenging lunge Reps/Minutes 10 Comments challenging, better R than L sit to stand Reps/Minutes 4 Comments contract pelvic floor first PT-OP-T Assessment and Plan Start: 11/24/22 12:59 Freq: Status: Active Protocol: Document 01/14/23 13:54 AMB (Rec: 01/14/23 14:26 TANYA [id number]) Physical Therapy Assessment Goals Pelvic floor strength Short Term Goal (STG) Demario will contract his pelvic floor muscles appropriate for 10 seconds. STG Duration 4 weeks Truck Driver Teamster Goal (LTG) Demario will contract his pelvic floor muscles while moving from sit to stand without breath holding. LTG Duration 8 weeks Continence Short Term Goal (STG) Demario will move from sit to stand without leaking urine. STG Duration 4 weeks Penitentiary Goal (LTG) Demario will walk one mile without leaking urine. LTG Duration 8 weeks Assessment Summary Assessment Demario is continuing to leak when he performs a floor transfer. continuing to use continence products, does feel like he is able to feel it more when he needs to use the restroom, but nocturia continues to be problematic as he goes multiple times at night to try to avoid leaking. Physical Therapy Plan Frequency and Duration Frequency of Treatment 1x/Week Duration of treatment (weeks) 8 Plan of Care Start Date 12/10/22 Plan of Care End Date 02/04/23 Therapeutic Interventions Therapeutic Interventions Home Exercise Program,Manual Therapy,Neuromuscular Re- education,Self-Care/Home Management,Therapeutic Activities,Therapeutic Exercises Modalities Biofeedback,Electric Stimulation Next Visit Focus/Plan Next Note Type Treatment Note Next Visit Plan reassess with biofeedback, progress into standing exercise as tolerated
--- NOTE | 2023-01-28 08:29 | PT.OPPOC ---
Physical, Occupational & Speech Therapy At [facility] Current Diagnoses Other obstructive and reflux uropathy (01/14/23) Benign prostatic hyperplasia with lower urinary tract symptoms (01/14/23) Visit Care Team Role Provider Type SAM Iqbal Family Provider Non-Staff Primary Care Provider Specialty: Medical Address: [address] [place] [address], [id number] Email: Fern Aviles MD Attending Provider Physician Referring Provider Specialty: Urology Address: [address] [place] [address], [id number] Email: Plan Of Care PT-OP-T Assessment and Plan Start: 11/24/22 12:59 Freq: Status: Active Protocol: Document 01/28/23 08:28 AMB (Rec: 01/28/23 08:29 AMB [id number]) Physical Therapy Assessment Goals Pelvic floor strength Short Term Goal (STG) Demario will contract his pelvic floor muscles appropriate for 10 seconds. STG Duration 4 weeks Halfway Goal (LTG) Demario will contract his pelvic floor muscles while moving from sit to stand without breath holding. LTG Duration 8 weeks Continence Short Term Goal (STG) Demario will move from sit to stand without leaking urine. STG Duration 4 weeks Halfway Goal (LTG) Demario will walk one mile without leaking urine. LTG Duration 8 weeks Physical Therapy Plan Frequency and Duration Frequency of Treatment Every Other Week Plan of Care Start Date 01/28/23 Plan of Care End Date 04/08/23 Therapeutic Interventions Therapeutic Interventions Home Exercise Program,Manual Therapy,Neuromuscular Re- education,Self-Care/Home Management,Therapeutic Activities,Therapeutic Exercises Modalities Biofeedback,Electric Stimulation Plan of Care Dates Plan of Care Start Date 01/28/23 Plan of Care End Date 04/08/23 Electronically Signed by: Kendy Parks, PT 01/28/23 [id number] If you are in agreement with this Plan of Care, please return a signed and dated copy. I have reviewed this Plan of Care and certify that the skilled therapy services above are required to meet the patient?s needs. Physician Signature Date Printed Name and Credentials Clinical Instructor Signature Printed Name and Credentials
--- NOTE | 2023-02-11 14:29 | PT.OTN ---
Current Diagnoses Other obstructive and reflux uropathy (02/11/23) Benign prostatic hyperplasia with lower urinary tract symptoms (02/11/23) Physical Therapy Treatment Note PT-OP-A Visit Information Start: 11/24/22 12:59 Freq: Status: Active Protocol: Document 02/11/23 13:43 AMB (Rec: 02/11/23 14:00 AMB [id number]) Out-Patient Physical Therapy Visit Information Visit Information Visit Type Treatment Note Visit Start Time 13:45 Visit Stop Time 14:30 Total Visit Minutes 40 Visit Number 5 PT-OP-B Current Condition Start: 11/24/22 12:59 Freq: Status: Active Protocol: Document 12/10/22 13:47 AMB (Rec: 12/10/22 14:30 AMB [id number]) Current Condition History of Current Condition Onset Date 12/03 Current Complaints s/p radical prostatectomy History of Current Condition Urgency before surgery, had surgery a week ago, still catheterized. Radical prostatectomy. Denied leaking before surgery. PT-OP-C Subjective Start: 11/24/22 12:59 Freq: Status: Active Protocol: Document 01/14/23 13:54 AMB (Rec: 01/14/23 14:26 AMB [id number]) OP-PT Subjective Patient Comments Patient Comments During the day feels like things are improving. Pt still noticing a lot of nocturia-- feels like has to go every 2 hours or else he leaks. PT-OP-Q Treatments Start: 11/24/22 12:59 Freq: Status: Active Protocol: Document 02/11/23 14:14 AMB (Rec: 02/11/23 14:28 AMB [id number]) Therapeutic Exercises Sitting Exercises roll in roll out Sitting Exercise Name t band #2, difficulty holding with exhale Reps/Minutes 2x10 Standing Exercises long holds Standing Exercise Name 10 second hold squat Standing Exercise Name cued breath Reps/Minutes 10 Comments contract pelvic floor- challenging sit to stand Reps/Minutes 4 Comments contract pelvic floor first PT-OP-T Assessment and Plan Start: 11/24/22 12:59 Freq: Status: Active Protocol: Document 02/11/23 13:43 AMB (Rec: 02/11/23 14:00 AMB [id number]) Physical Therapy Assessment Goals Pelvic floor strength Short Term Goal (STG) Demario will contract his pelvic floor muscles appropriate for 10 seconds. STG Duration MET Mcc Goal (LTG) Demario will contract his pelvic floor muscles while moving from sit to stand without breath holding. LTG Duration 8 weeks Continence Short Term Goal (STG) Demario will move from sit to stand without leaking urine. STG Duration 4 weeks Mcc Goal (LTG) Demario will walk one mile without leaking urine. LTG Duration 8 weeks Assessment Summary Assessment Pt reports 80% improvement. Does notice most leaking with sit to stand, does try to contract with sit to stand Physical Therapy Plan Frequency and Duration Frequency of Treatment Every Other Week Plan of Care Start Date 01/28/23 Plan of Care End Date 04/08/23 Therapeutic Interventions Therapeutic Interventions Home Exercise Program,Manual Therapy,Neuromuscular Re- education,Self-Care/Home Management,Therapeutic Activities,Therapeutic Exercises Modalities Biofeedback,Electric Stimulation Next Visit Focus/Plan Next Note Type Treatment Note Next Visit Plan standing tolerance, sit to stand
--- NOTE | 2023-06-03 15:20 | PT.OPDS ---
Current Diagnoses Other obstructive and reflux uropathy (02/11/23) Benign prostatic hyperplasia with lower urinary tract symptoms (02/11/23) Visit Care Team Role Provider Type SAM Iqbal Family Provider Non-Staff Primary Care Provider Specialty: Medical Address: [address] [place] [address], [id number] Email: Fern Aviles MD Attending Provider Physician Referring Provider Specialty: Urology Address: [address] [place] [address], [phone] Email: Visit Number Visit Number 5 Discharge Summary PT-OP-B Current Condition Start: 11/24/22 12:59 Freq: Status: Active Protocol: Document 12/10/22 13:47 AMB (Rec: 12/10/22 14:30 AMB [id number]) Current Condition History of Current Condition Onset Date 12/03 Current Complaints s/p radical prostatectomy History of Current Condition Urgency before surgery, had surgery a week ago, still catheterized. Radical prostatectomy. Denied leaking before surgery. PT-OP-C Subjective Start: 11/24/22 12:59 Freq: Status: Active Protocol: Document 01/14/23 13:54 AMB (Rec: 01/14/23 14:26 AMB [id number]) OP-PT Subjective Patient Comments Patient Comments During the day feels like things are improving. Pt still noticing a lot of nocturia-- feels like has to go every 2 hours or else he leaks. PT-OP-T Assessment and Plan Start: 11/24/22 12:59 Freq: Status: Active Protocol: Document 06/03/23 15:13 AMB (Rec: 06/03/23 15:20 AMB [id number]) Physical Therapy Assessment Goals Pelvic floor strength Short Term Goal (STG) Demario will contract his pelvic floor muscles appropriate for 10 seconds. STG Duration MET Brake Repairer Goal (LTG) Demario will contract his pelvic floor muscles while moving from sit to stand without breath holding. LTG Duration 8 weeks Continence Short Term Goal (STG) Demario will move from sit to stand without leaking urine. STG Duration 4 weeks Long-Term Goal (LTG) Demario will walk one mile without leaking urine. LTG Duration 8 weeks Assessment Summary Assessment At Demario's last visit, he reported 80% improvement, continued to struggle with leaking when moving from sit to stand. He canceled his last remaining appointment and is no longer being seen. Physical Therapy Plan Discharge Physical Therapy Discharge Reasons No Longer Attending PT
== END 2023-06-04 14:09 | disposition home or self-care (01) ==
LOC: PHYS 13:45
PROVIDERS: Family Provider Nurse Practitioner Family; PCP Nurse Practitioner Family; Referring Provider Specialist; Visit Provider Specialist
DX: N40.1 Benign prostatic hyperplasia with lower urinary tract symptoms (principal); N13.8 Other obstructive and reflux uropathy
CPT/HCPCS: 97110; 97161

== ENCOUNTER → 2023-06-03 13:41 | Outpatient (CLI) | payer MEDICARE, SELFPAY ==
[2022-12-03 08:23] VITALS: BMI 28.3
== END ==
PROVIDERS: Family Provider Nurse Practitioner Family; PCP Nurse Practitioner Family; Visit Provider Specialist
DX: N40.1 Benign prostatic hyperplasia with lower urinary tract symptoms (principal); N13.8 Other obstructive and reflux uropathy
CPT/HCPCS: 87086

== ENCOUNTER → 2024-02-24 07:45 | Outpatient (CLI) | payer MEDICARE, SELFPAY ==
[2022-12-03 08:23] VITALS: BMI 28.3
--- NOTE | 2024-02-24 22:31 | DI.NM.S_ITS ---
DATE OF SERVICE: 02/24/2024 PROCEDURE PERFORMED: Exercise treadmill stress and rest myocardial perfusion imaging with gating to assess ejection fraction and regional wall motion. ORDERING PROVIDER: Dr. Jb Romeo. INDICATIONS: The patient is a 73-year-old hypertensive male with an abnormal ECG. EXERCISE TREADMILL TESTING: The patient was able to exercise for 7 minutes and 48 seconds on a standard Jeffery protocol suggesting very good exercise capacity with an ABBE of -17%. He had a normal heart rate and blood pressure response to exercise, achieving a maximum heart rate of 130 BPM (88% of his predicted maximum). He had no chest discomfort or other anginal symptoms. His resting ECG showed sinus rhythm with low QRS voltage and inferior Q-waves but normal ST segments. With stress, there were no significant ST-segment shifts. There were rare isolated PACs but no concerning arrhythmias. At 6 minutes and 45 seconds of exercise, at a heart rate of 124 BPM, 26.5 millicuries of technetium-99m Myoview was injected and he was imaged 15 minutes later using a gated SPECT acquisition protocol. Earlier in the day while at rest, he had been injected with 12.5 millicuries of technetium-99m Myoview and was imaged 15 minutes later, again using a gated SPECT acquisition protocol. FINDINGS: 1. Raw data: There is fairly good myocardial tracer uptake with slight patient motion detected. The lung/heart ratio is normal at 0.28 with a normal TID ratio of 0.93. 2. Quantitative gated SPECT: Post-stress ejection fraction is estimated at 74% without any focal wall motion abnormality, and specifically, the inferior wall appears to have normal contractility. The resting ejection fraction is also 74% with a normal resting end- diastolic volume of 105 mL. 3. Myocardial perfusion imaging: Post-stress supine images show a fairly normal myocardial perfusion pattern without any perfusion defects, supported by normal perfusion imaging in the prone position. The resting images show no areas of improvement. IMPRESSION: 1. Normal myocardial perfusion study. 2. No evidence of myocardial ischemia or previous myocardial infarction. 3. Normal left ventricular systolic function without focal wall motion abnormality. 4. Very good exercise capacity without angina or ECG evidence of ischemia. He had rare isolated PACs but no concerning complex ectopy. Juan Willard - WILLIE/cordelia/FIDEL doc#: [id number]/job#: [id number] dd: 02/24/2024 16:50:00 dt: 02/24/2024 22:15:00 DICTATING MD/COPIES TO: Judd Jackson MD; Jb Romeo MD COPIES MNE: DORA;
== END ==
LOC: NUCM 07:46
PROVIDERS: Family Provider Nurse Practitioner Family; PCP Family Medicine; Referring Provider Internal Medicine Cardiovascular Disease; Visit Provider Internal Medicine Cardiovascular Disease
DX: R94.31 Abnormal electrocardiogram [ECG] [EKG] (principal); I10 Essential (primary) hypertension
CPT/HCPCS: 78452; 93017; A9502

== ENCOUNTER → 2024-09-14 15:05 | Outpatient (CLI) | payer MEDICARE, SELFPAY ==
[2022-12-03 08:23] VITALS: BMI 28.3
[2024-09-14 15:33] LABS: Estimated Glomerular Filt Rate > 60 mL/min (>60)
== END ==
PROVIDERS: Family Provider Nurse Practitioner Family; PCP Family Medicine; Referring Provider Urology; Visit Provider Urology
DX: C61 Malignant neoplasm of prostate (principal); N13.8 Other obstructive and reflux uropathy; N40.1 Benign prostatic hyperplasia with lower urinary tract symptoms
CPT/HCPCS: 36415; 82565

== ENCOUNTER → 2024-10-11 10:24 | Outpatient (CLI) | payer MEDICARE, SELFPAY ==
[2022-12-03 08:23] VITALS: BMI 28.3
--- NOTE | 2024-10-11 10:25 | DI.NM.S_ITS ---
PROCEDURE: TX BONE SCAN WHOLE BODY RADIOPHARMACEUTICAL: 21.7 mCi Tc-99m MDP IV. 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 Anterior and posterior views were acquired from vertex to feet. COMPARISON: [facility], CT, CT CHEST ABD PEL W CON, 10/11/2024, 11:33. [facility], [place], [place] BONE SCAN WHOLE BODY, 08/19/2022, 11:20. FINDINGS: Physiologic uptake is noted within the kidneys and bladder. Scattered areas of uptake are noted within the small bones of the feet, knees, 1st CMC joints as well as scattered areas in the spine. IMPRESSION: Stable interval exam without evidence of metastatic disease. Dictated by: Gale Golden M.D. on 10/11/2024 at 20:12 Approved by: Gale Golden M.D. on 10/11/2024 at 20:13
--- NOTE | 2024-10-11 11:20 | DI.CT.S_ITS ---
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 5 mm coronal and sagittal reformats were performed, with additional 7 mm MIP reformats through the lungs. For radiation dose reduction, the following was used: automated exposure control, adjustment of mA and/or kV according to patient size. COMPARISON: [facility], CT, CT CHEST ABD PEL W CON, 08/19/2022, 10:12. FINDINGS: Image quality: Excellent. CHEST: Lower Neck: No enlarged lymph nodes. Thyroid: No thyroid nodules which require sonographic follow up, per consensus guidelines. Axillae: No enlarged lymph nodes. Chest Wall: Unremarkable. Lungs and Pleura: No pneumothorax or pleural effusions. No consolidation or suspicious nodules. Heart: Heart size is normal. No pericardial effusion. Thoracic Vessels: The aorta and pulmonary arteries demonstrate normal size. Mediastinum and [place]: No enlarged lymph nodes. Esophagus: No wall thickening. No hiatal hernia. ABDOMEN: Liver: No solid mass. Gallbladder: No radiopaque gallstones or wall thickening. Biliary ducts: No biliary dilation. Pancreas: No ductal dilation. Spleen: Size is within normal limits. Adrenal Glands: No adrenal nodules. Kidneys and Ureters: No hydronephrosis. No solid mass. No complex renal cystic lesion which requires follow up. Simple renal cysts the largest on the left exophytic at 7 cm. Stomach and Bowel: Normal colonic caliber, without significant wall thickening. Peritoneum: No abnormal intraperitoneal fluid. No free air. Ventral Wall: No significant ventral hernia. Abdominal Nodes: No retroperitoneal or mesenteric adenopathy by size criteria. Vessels: Atherosclerosis aorta without aneurysm.Inferior vena cava are normal in size. PELVIS: Pelvic Organs: Unremarkable. Bladder: No bladder wall thickening, accounting for underdistention. Pelvic Nodes: No enlarged lymph nodes. Small inguinal lymph nodes bilaterally none of which definitely meet size criteria for adenopathy, however more prominent in size than on the prior study measuring up to 1.8 cm in maximal diameter. Miscellaneous: No inguinal hernias are seen. Bones: No aggressive osseous abnormality. IMPRESSION: 1. Some increase in size of right inguinal lymph nodes which do not definitely meet size criteria for adenopathy but appear more prominent than on the prior exam. PET-CT may be of benefit to further evaluate. 2. Otherwise stable appearance to the chest abdomen and pelvis without other areas of disease progression. Dictated by: Price Richardson M.D. on 10/11/2024 at 14:00 Approved by: Price Richardson M.D. on 10/11/2024 at 14:09
== END ==
LOC: NUCM 10:24
PROVIDERS: Family Provider Nurse Practitioner Family; PCP Family Medicine; Referring Provider Urology; Visit Provider Urology
DX: C61 Malignant neoplasm of prostate (principal); N28.1 Cyst of kidney, acquired; I70.0 Atherosclerosis of aorta
CPT/HCPCS: 71260; 74177; 78306; A9503; Q9967